=== PATIENT | female | born 1955 | race Caucasian/White ===

== ENCOUNTER 2024-08-03 09:00 | Emergency (ER) | payer MEDICARE ==
[~2024-08-03] VITALS: Ht 167.6 cm; Wt 73.6 kg
[2024-08-03] MEDS ORDERED: LAMOTRIGINE200 MG PO (09:14)
[2024-08-03] MEDS ORDERED: ARIPIPRAZOLE2 MG PO (09:14)
[2024-08-03] MEDS ORDERED: AMPHETAMINE SAL15 MG PO (09:14)
[2024-08-03] MEDS ORDERED: ondansetron HCL 4 MG/2 ML VIAL IV ONE (09:30)
[2024-08-03] MEDS ORDERED: SODIUM CHLORIDE 0.9% 1,000 ML IV ONE (09:30)
[2024-08-03] MEDS ORDERED: MORPHINE SULFATE 4 MG/ML VIAL IV ONE ×2 (09:30→14:30)
[2024-08-03 09:32] LABS: HEMATOCRIT 58.6 % (35.0-50.0); HEMOGLOBIN 19.9 g/dL (12.0-18.0); MCH 29.2 (27-36); MCV 85.9 fl (81-99); PLATELET COUNT 512 K/uL (140-440); RBC 6.82 M/ul (4.3-5.7); RDW 13.4 (10.5-15.0)
[2024-08-03 09:43] LABS: ALBUMIN 4.3 g/dL (3.4-5.0); ALBUMIN/GLOBULIN RATIO 0.88 (1.1-2.4); ANION GAP 18.4 (7-21); BUN/CREATININE RATIO 31.83 (6.0-28.6); CALCIUM 10.3 mg/dL (8.5-10.1); CREATININE, SERUM 2.23 mg/dL (0.55-1.02); POTASSIUM 4.4 mmol/L (3.5-5.1); PROTEIN, TOTAL 9.2 g/dL (6.4-8.2)
[2024-08-03 09:52] LABS: LYMPHOCYTES, MANUAL DIFF 9; MONOCYTES, MANUAL DIFF 14; NEUTROPHILS, MANUAL DIFF 77
[2024-08-03] MEDS ORDERED: LACTATED RINGER'S 1,000 ML IV ONE (11:30)
[2024-08-03 13:27] LABS: BILIRUBIN, URINE NEGATIVE (negative); BLOOD/HGB, URINE MODERATE (Negative); KETONE, URINE NEGATIVE (Negative); LEUK ESTERASE, URINE NEGATIVE (negative); NITRITE, URINE NEGATIVE (negative)
[2024-08-03 13:40] LABS: BACTERIA, URINE NONE SEEN /hpf (negative); CASTS, URINE HYALINE 3+ \\lpf; COLLECTION TYPE, URINE CLEAN CATCH; CRYSTALS, URINE NONE SEEN (0-1+); EPITHELIAL CELLS, URINE OCCASIONAL /lpf (0-1+); REFLEX CULTURE, URINE No (No); WHITE BLOOD CELLS, URINE 0-1 /HPF (0-5)
--- NOTE | 2024-08-03 16:16 | CONS ---
[facility] [address], [place] [address] Signed DATE OF CONSULTATION: 08/03/2024 CHIEF COMPLAINT: Nausea and vomiting. 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 She worked many years in the [facility] [place]. She has moved down to [place], [place] to be closer to her daughter. Five days ago, she was having significant nausea and vomiting. She is now dehydrated. She said this is the 4th episode she has had this year. She came to our local emergency room for evaluation. Vital signs are fine. She is not in any acute distress. White count is slightly elevated. Her creatinine is up to 2.2 with a BUN of 71. Her liver function tests were elevated and the lipase is normal. A CT scan of abdomen and pelvis shows some air in the left biliary tree and then a 4.5 x 3 cm calcified oval shaped object in the jejunum causing a transition point. I have been asked to see her as a local general surgeon on-call here in the ER. PAST MEDICAL HISTORY: Depression, anxiety, hypercholesterolemia. PAST SURGICAL HISTORY: Oophorectomy. Specifically she denies any gallbladder surgery or ERCP. SOCIAL HISTORY: She does not smoke or drink. She is a retired registered nurse, mainly Geriatrics. Rocio Hernandez is her primary care provider. She prefers the [facility]. She lives with her daughter, Lainey Guillen at . FAMILY HISTORY: None. REVIEW OF SYSTEMS: She had 10 systems reviewed and there were nothing new to add. She specifically denies ever having gallbladder surgery or an ERCP. ALLERGIES: None. MEDICATIONS: Lamotrigine, Adderall and aripiprazole PHYSICAL EXAMINATION: Electronically Signed By: MORIAH SIMMS MD 08/03/24 1616 PATIENT NAME: LANE DE LA VEGA CONSULTATION DATE OF : 57 REPORT #: [id number] PHYSICIAN: MORIAH SIMMS MD PCP: ROCIO HERNANDEZ PA-C REPORT IS CONFIDENTIAL AND NOT TO BE RELEASED WITHOUT AUTHORIZATION [facility] [address], [place] [address] Signed VITAL SIGNS: Her blood pressure is 122/83, heart rate 93, respiratory rate 16, temperature is 97.5. She is 91% on room air. She is 5 feet 6 inches tall at 73 kg with a body mass index of 26. GENERAL: Lane is a 69-year-old female, lying supine semi-recumbent in her ER bed watching TV. She is in no acute distress. She is not jaundiced. LUNGS: Clear to auscultation bilaterally. HEART: Regular rate and rhythm without murmurs. ABDOMEN: Generally soft and flat. Mild upper abdominal tenderness. No peritoneal signs or symptoms. LABORATORY DATA: Her white blood count is 12.6, hemoglobin 19, neutrophils 77, BUN 71, creatinine 2.2, total bilirubin 2.0, AST 89, ALT 155, alkaline phosphatase 191, albumin is 4.3, lipase 41. RADIOGRAPHIC STUDIES: CT scan of the abdomen and pelvis is reviewed, the images as well as the report. Without contrast, the radiologist felt that the gallbladder was absent. She has air in her left biliary ducts. There is a 4.5 x 3 cm calcified oval shaped object in her jejunum causing a transition point. ASSESSMENT AND PLAN: Lane is a 69-year-old female, who appears to have gallstone ileus. I reviewed this with Lane and our ER physician. I think she is going to be better served with a higher level of care. Particularly, she should probably have a hepatobiliary surgeon. [facility] and [place] [facility] are the two hospitals here in the [facility]. She is from [facility] [place] and there are hepatobiliary surgeons at [facility] as well. It might be worthwhile talking to the hepatobiliary surgeon first, but she probably needs at least an ultrasound followed by probably an MRI of her liver and abdomen and at some point she may even need endoscopic ultrasound. Eventually she is going to obviously need this surgically addressed. I have explained this to Lane and the ER physician. They have expressed understanding and agreed with the above plan. Moriah Simms MD ALB/MODL /[id number] Electronically Signed By: MORIAH SIMMS MD 08/03/24 1616 PATIENT NAME: LANE DE LA VEGA CONSULTATION DATE OF : 57 REPORT #: [id number] PHYSICIAN: MORIAH SIMMS MD PCP: ROCIO HERNANDEZ PA-C REPORT IS CONFIDENTIAL AND NOT TO BE RELEASED WITHOUT AUTHORIZATION [facility] [address] [place] [id number] Signed cc: LENA Gustafson MD Copies: ROCIO HERNANDEZ PA-C, ANDREW L MD ~ Electronically Signed By: MORIAH SIMMS MD 08/03/24 1616 PATIENT NAME: CEFERINOLANE E CONSULTATION DATE OF : 57 REPORT #: [id number] PHYSICIAN: MORIAH SIMMS MD PCP: ROCIO HERNANDEZ PA-C REPORT IS CONFIDENTIAL AND NOT TO BE RELEASED WITHOUT AUTHORIZATION
[2024-08-03] MEDS ORDERED: MORPHINE SULFATE 4 MG/ML VIAL IV PRN (17:45)
[2024-08-03] MEDS ORDERED: LACTATED RINGER'S 1,000 ML IV SCH (18:00)
[2024-08-04] MEDS ORDERED: LACTATED RINGER'S 1,000 ML IV SCH (02:00)
[2024-08-04 06:59] LABS: HEMATOCRIT 47.6 % (35.0-50.0); HEMOGLOBIN 15.9 g/dL (12.0-18.0); MCHC 33.4 g/dl (30-36); MCV 86.7 fl (81-99); PLATELET COUNT 347 K/uL (140-440); RBC 5.49 M/ul (4.3-5.7); RDW 13.4 (10.5-15.0)
[2024-08-04 07:14] LABS: ALBUMIN 2.9 g/dL (3.4-5.0); ALBUMIN/GLOBULIN RATIO 0.88 (1.1-2.4); ANION GAP 7.9 (7-21); BILIRUBIN, TOTAL 1.7 mg/dL (0.2-1.0); BUN/CREATININE RATIO 42.85 (6.0-28.6); CREATININE, SERUM 0.91 mg/dL (0.55-1.02); POTASSIUM 3.9 mmol/L (3.5-5.1); PROTEIN, TOTAL 6.2 g/dL (6.4-8.2)
[2024-08-04 07:29] LABS: BANDS, MANUAL DIFF 11; BASOPHILS, MANUAL DIFF 1; EOSINOPHILS, MANUAL DIFF 2; LYMPHOCYTES, MANUAL DIFF 16; MONOCYTES, MANUAL DIFF 18; NEUTROPHILS, MANUAL DIFF 52
[2024-08-04 17:59] VITALS: BP 98/79
== END 2024-08-04 18:07 | disposition short-term general hospital (02) ==
LOC: ED 09:00
PROVIDERS: Emergency Medicine; Family Medicine
DX: K56.7 Ileus, unspecified (principal); K80.20 Calculus of gallbladder without cholecystitis without obstruction; Z79.899 Other long term (current) drug therapy
CPT/HCPCS: 36415; 74018; 74176; 80053; 81001; 83690; 85025; 96374; 96375; 96376; 99285-25; J2270; J2405; J7030; J7121